=== PATIENT | male | born 1935 ===

== ENCOUNTER 2023-03-22 16:11 | Emergency (ER) | payer MEDICARE, BC ==
[~2023-03-22] VITALS: Ht 177.8 cm; Wt 75.9 kg
[~2023-03-22 16:11] MED LIST: FLONASE NASAL S16 GM NS; GLUCOSAMINE & C1 TAB PO; HCTZ 25MG TAB25 MG PO; IPRATROPIUM BROM3 M1 IH; LIPITOR20 MG PO; METAMUCIL0.52 G1 PO; OPTIVAR 6 ML 6 M6 ML OP; PRILOSEC 20MG20 MG PO; PROAIR HFA0.09 MG/AC IH; ROBAXIN 75750 MG/TAB PO; RT ADVAIR 528 DISKUS IH; SPIRIVA RE2.5 MCG/Ac IH; THEO-24 30300 MG/CAP PO; ZANAFLEX 4MG TAB4 MG PO; [UNRECOGNIZED DRUG - OTHER] PO
[2023-03-22 16:17] VITALS: TEMP 97.8
[2023-03-22 16:36] LABS: HEMATOCRIT 41.8 % (42.0-52.0); HEMOGLOBIN 14.2 g/dl (13.5-18.0); MEAN CELL VOLUME 89 fl (80.0-100.0); MEAN CORPUSCULAR HEMOGLOBIN 30 pg (27-31); MEAN CORPUSCULAR HGB CONC 34 g/dl (33.0-37.0); PLATELET COUNT 212 K/mm3 (130-400); RED BLOOD COUNT 4.72 M/mm3 (4.20-5.60); REDCELL DISTRIBUTION WIDTH-CV 13.2 % (11.5-14.5)
[2023-03-22 16:47] LABS: ALBUMIN 3.7 gm/dL (3.4-4.8); BILIRUBIN,TOTAL 0.8 mg/dL (0.2-1.2); CALCIUM 9.7 mg/dL (8.4-10.2); CREATININE, serum 1.6 mg/dL (0.72-1.25); POTASSIUM 3.9 mmol/L (3.5-4.5); TOTAL PROTEIN 6.5 gm/dL (6.2-8.1)
[2023-03-22 16:53] LABS: BAND 3 % (0-10); LYMPHOCYTE 4 % (20.0-51.0); NEUTROPHILS 93 % (42.0-75.2); TROPONIN-I 0.015 ng/mL (0.00-0.033)
[2023-03-22 16:54] LABS: ANISOCYTOSIS 1+
[2023-03-22 16:55] LABS: PLATELET ESTIMATE NORMAL (NORMAL)
[2023-03-22] MEDS ORDERED: XOPENEX 1.1.25 MG/3 IH (18:31)
[2023-03-22 19:03] VITALS: BP 137/86; PULSE 86
== END 2023-03-22 19:03 | disposition home or self-care (01) ==
LOC: COL.ER 16:11
PROVIDERS: Family Medicine
DX: R06.00 Dyspnea, unspecified (principal); R79.89 Other specified abnormal findings of blood chemistry
CPT/HCPCS: J2930; J3475; Q9967